=== PATIENT | male | born 1960 | race Caucasian/White ===

== ENCOUNTER 2020-08-27 12:22 | Emergency (ER) | payer MEDICARE ==
[~2020-08-27] VITALS: Ht 180.3 cm; Wt 77.3 kg
[~2020-08-27 12:22] MED LIST: CARV25 PO; DIGO125T84 PO; FURO20 PO; LISI20TA24 PO; POTA-92 PO; WARF2TAB30 PO
[2020-08-27 14:23] LABS: BASOPHILS % (AUTO) 0.7 % (0.0-2.0); EOSINOPHILS % (AUTO) 1.4 % (1.0-6.0); HEMATOCRIT 44.3 % (41-53); HEMOGLOBIN 14.6 g/dL (13.5-17.5); LYMPHOCYTES # (AUTO) 0.9 K/uL (1.0-4.8); LYMPHOCYTES % (AUTO) 10.8 % (22.0-44.0); MEAN CORPUSCULAR HEMOGLOBIN 30.3 pg (26.0-34.0); MEAN CORPUSCULAR HGB CONC 33.1 G/dL (31.0-37.0); MEAN CORPUSCULAR VOLUME 92 fL (80-100); MONOCYTES # (AUTO) 0.6 K/uL (0.1-1.0); MONOCYTES % (AUTO) 6.9 % (2.0-9.0); NEUTROPHILS # (AUTO) 7.1 K/uL (1.8-7.7); NEUTROPHILS % (AUTO) 80.2 % (40.0-70.0); PLATELET COUNT (AUTO) 268 K/uL (150-450); RED BLOOD CELL COUNT(AUTO) 4.84 MIL/uL (4.50-5.90)
[2020-08-27 14:39] LABS: ANION GAP 13 mmol/L (8-16); CALCIUM, TOTAL 8.4 mg/dL (8.8-10.5); CARBON DIOXIDE 20 mmol/L (22-29); CHLORIDE 105 mmol/L (98-107); CREATININE 0.89 mg/dL (0.60-1.30); GLOMERULAR FILTR. RATE CALC > 60 mL/min (>60); GLUCOSE,RANDOM 117 mg/dL (70-110); POTASSIUM 4.1 mmol/L (3.5-5.1); SODIUM SERUM 138 mmol/L (136-145); UREA NITROGEN, BLOOD 12 mg/dL (7-18)
[2020-08-27 14:41] LABS: INR 1.6 (0.9-1.1); PROTHROMBIN TIME 16.7 SEC (9.4-11.6)
[2020-08-27] MEDS ORDERED: OXYMETAZOLINE HCL 0.05% 15 ML NASAL SPRAY NASAL ONE (14:45)
[2020-08-27 14:49] LABS: ALANINE AMINOTRANSFERASE 20 U/L (12-78); ALBUMIN 3.5 g/dL (3.4-5.0); ALKALINE PHOSPHATASE 88 U/L (46-116); ASPARTATE AMINOTRANSFERASE 31 U/L (15-37); BILIRUBIN,TOTAL 0.5 mg/dL (0.1-1.0); TOTAL PROTEIN, SERUM 7.7 g/dL (6.4-8.2)
[2020-08-27 15:20] LABS: DIGOXIN < 0.20 ng/mL (0.90-2.00)
[2020-08-27] MEDS ORDERED: DIGOXIN 125 MCG TABLET PO ONE (15:30)
[2020-08-27] MEDS ORDERED: CARVEDILOL 25 MG TABLET PO ONE (15:30)
[2020-08-27 17:21] VITALS: BP 135/98
== END 2020-08-27 17:25 | disposition left against medical advice (07) ==
LOC: EMS 12:22
DX: R04.0 Epistaxis (principal); D68.9 Coagulation defect, unspecified; I48.91 Unspecified atrial fibrillation; I11.9 Hypertensive heart disease without heart failure; I10 Essential (primary) hypertension; Z95.0 Presence of cardiac pacemaker; Z79.899 Other long term (current) drug therapy; Z79.01 Long term (current) use of anticoagulants
CPT/HCPCS: 30901; 30903; 80053; 80162; 85025; 85610; 85730; 93005; 99283; 99284

== ENCOUNTER 2021-01-12 04:12 | Emergency (ER) | payer MEDICARE ==
[~2021-01-12] VITALS: Ht 180.3 cm; Wt 118.2 kg
[2021-01-12 05:18] LABS: COVID AG,FIA SOURCE NASOPHARYNGEAL
[2021-01-12] MEDS ORDERED: DILTIAZEM HCL 5 MG/ML 5 ML VIAL IVP ONE ×2 (05:30→07:45)
[2021-01-12 05:59] LABS: BASOPHILS % (AUTO) 0.9 % (0.0-2.0); EOSINOPHILS % (AUTO) 0.3 % (1.0-6.0); HEMATOCRIT 46.5 % (41-53); HEMOGLOBIN 15.7 g/dL (13.5-17.5); LYMPHOCYTES # (AUTO) 0.8 K/uL (1.0-4.8); LYMPHOCYTES % (AUTO) 11.4 % (22.0-44.0); MEAN CORPUSCULAR HEMOGLOBIN 30.9 pg (26.0-34.0); MEAN CORPUSCULAR HGB CONC 33.8 G/dL (31.0-37.0); MEAN CORPUSCULAR VOLUME 92 fL (80-100); MONOCYTES # (AUTO) 0.5 K/uL (0.1-1.0); MONOCYTES % (AUTO) 7.6 % (2.0-9.0); NEUTROPHILS # (AUTO) 5.7 K/uL (1.8-7.7); NEUTROPHILS % (AUTO) 79.8 % (40.0-70.0); PLATELET COUNT (AUTO) 206 K/uL (150-450); RED BLOOD CELL COUNT(AUTO) 5.09 MIL/uL (4.50-5.90); RED CELL DISTRIBUTION WIDTH 13.8 % (11.5-14.5)
[2021-01-12 06:26] LABS: D-DIMER 0.42 mg/L FEU (0.00-0.50); PROTHROMBIN TIME 111.4 SEC (9.4-11.6)
[2021-01-12 06:30] LABS: INR 13.2 (0.9-1.1)
[2021-01-12] MEDS ORDERED: ASPIRIN 81 MG CHEWABLE TABLET PO ONE (06:30)
[2021-01-12 06:36] LABS: B-TYPE NATRIURETIC PEPTIDE 188 pg/mL (0-100)
[2021-01-12 06:39] LABS: CARBON DIOXIDE 22 mmol/L (22-29); CREATININE 0.99 mg/dL (0.60-1.30); GLUCOSE,RANDOM 163 mg/dL (70-110); UREA NITROGEN, BLOOD 5 mg/dL (7-18)
[2021-01-12 06:40] LABS: ALANINE AMINOTRANSFERASE 32 U/L (12-78); ALBUMIN 2.7 g/dL (3.4-5.0); ALKALINE PHOSPHATASE 116 U/L (46-116); ASPARTATE AMINOTRANSFERASE 46 U/L (15-37); BILIRUBIN,TOTAL 0.7 mg/dL (0.1-1.0); CALCIUM, TOTAL 7.3 mg/dL (8.8-10.5); CREATINE KINASE, TOTAL ONLY 100 U/L (39-308); GLOMERULAR FILTR. RATE CALC > 60 mL/min (>60); TOTAL PROTEIN, SERUM 7.2 g/dL (6.4-8.2)
[2021-01-12 06:44] LABS: ANION GAP 11 mmol/L (8-16); CHLORIDE 101 mmol/L (98-107); DIGOXIN < 0.20 ng/mL (0.90-2.00); POTASSIUM 3.2 mmol/L (3.5-5.1); SODIUM SERUM 134 mmol/L (136-145)
[2021-01-12] MEDS ORDERED: PHYTONADIONE 10 MG/1 ML AMP PO ONE (06:45)
[2021-01-12] MEDS ORDERED: POTASSIUM CHLORIDE 20 MEQ ER TABLET PO ONE (07:00)
[2021-01-12 07:30] VITALS: BP 132/75
== END 2021-01-12 08:27 | disposition left against medical advice (07) ==
LOC: EMS 04:15
DX: I20.9 Angina pectoris, unspecified (principal); I48.20 Chronic atrial fibrillation, unspecified; I11.9 Hypertensive heart disease without heart failure; E78.00 Pure hypercholesterolemia, unspecified; Z20.822 Contact with and (suspected) exposure to COVID-19; Z95.0 Presence of cardiac pacemaker; Z79.899 Other long term (current) drug therapy; Z79.01 Long term (current) use of anticoagulants
CPT/HCPCS: 36415; 71045; 80053; 80162; 82550; 83880; 84484; 85025; 85379; 85610; 85730; 87040; 87426; 93005; 96374; 99285; J3430; J3490; U0003; 99284

== ENCOUNTER 2022-05-16 17:20 | Inpatient (IN) | payer MEDICARE ==
[~2022-05-16] VITALS: Ht 180.3 cm; Wt 120.4 kg
[2022-05-16] MEDS ORDERED: LISI-893 PO (18:07)
[2022-05-16] MEDS ORDERED: FURO40 PO (18:07)
[2022-05-16] MEDS ORDERED: CARV12 PO (18:07)
[2022-05-16] MEDS ORDERED: WARF5TAB40 PO (18:07)
[2022-05-16 18:27] LABS: BASOPHILS % (AUTO) 0.8 % (0.0-2.0); EOSINOPHILS % (AUTO) 0.5 % (1.0-6.0); HEMATOCRIT 49.7 % (41-53); HEMOGLOBIN 16.7 g/dL (13.5-17.5); LYMPHOCYTES # (AUTO) 0.6 K/uL (1.0-4.8); LYMPHOCYTES % (AUTO) 9.3 % (22.0-44.0); MEAN CORPUSCULAR HEMOGLOBIN 31.9 pg (26.0-34.0); MEAN CORPUSCULAR HGB CONC 33.6 G/dL (31.0-37.0); MEAN CORPUSCULAR VOLUME 95 fL (80-100); MONOCYTES # (AUTO) 0.4 K/uL (0.1-1.0); MONOCYTES % (AUTO) 6.4 % (2.0-9.0); PLATELET COUNT (AUTO) 166 K/uL (150-450); RED BLOOD CELL COUNT(AUTO) 5.23 MIL/uL (4.50-5.90); RED CELL DISTRIBUTION WIDTH 13.6 % (11.5-14.5)
[2022-05-16 18:40] LABS: CALCIUM, TOTAL 8.1 mg/dL (8.8-10.5); CREATININE 1.26 mg/dL (0.60-1.30)
[2022-05-16] MEDS ORDERED: ONDANSETRON HCL 4 MG/2 ML VIAL IVP ONE (18:45)
[2022-05-16] MEDS ORDERED: FAMOTIDINE 10 MG/ML 2 ML VIAL IVP ONE (18:45)
[2022-05-16 18:53] LABS: PROTHROMBIN TIME 98.7 SEC (9.4-11.6)
[2022-05-16 18:55] LABS: COVID AG,FIA SOURCE NASOPHARYNGEAL
[2022-05-16 18:57] LABS: INR 10.3 (0.9-1.1)
[2022-05-16 18:59] LABS: ALBUMIN 2.9 g/dL (3.4-5.0); BILIRUBIN,TOTAL 1.1 mg/dL (0.1-1.0); MAGNESIUM 1.3 mg/dL (1.80-2.40); PHOSPHORUS 3.6 mg/dL (2.5-4.9); TOTAL PROTEIN, SERUM 8.1 g/dL (6.4-8.2)
[2022-05-16 19:16] LABS: INFLUENZA TYPE A NEGATIVE FOR TYPE A (NEGATIVE); INFLUENZA TYPE B NEGATIVE FOR TYPE B (NEGATIVE)
[2022-05-16] MEDS ORDERED: MAGNESIUM SULFATE 2 GM/WATER 50 ML IV ONE (20:00)
[2022-05-16] MEDS ORDERED: PHYTONADIONE 10 MG/1 ML AMP PO ONE (20:45)
[2022-05-16] MEDS ORDERED: BISACODYL 10 MG RECTAL RECTAL SUPPOSITORY PR PRN (21:15)
[2022-05-16] MEDS ORDERED: ACETAMINOPHEN 325 MG TABLET PO PRN (21:15)
[2022-05-16] MEDS ORDERED: HYDROCODONE/ACETAMINOPHEN 5-325 MG TABLET PO PRN (21:15)
[2022-05-16] MEDS ORDERED: MORPHINE SULFATE 2 MG/ML SYRINGE IVP PRN (21:15)
[2022-05-16] MEDS ORDERED: ONDANSETRON HCL 4 MG/2 ML VIAL IVP PRN (21:15)
[2022-05-16] MEDS ORDERED: MAGNESIUM HYDROXIDE SUSPENSION 30 ML UDCUP PO PRN (21:15)
[2022-05-16] MEDS ORDERED: ZOLPIDEM TARTRATE 5 MG TABLET PO PRN (21:15)
[2022-05-16 23:30] VITALS: BP 120/70
[2022-05-16 23:45] VITALS: BP 124/76
[2022-05-17 01:13] VITALS: BP 131/77
[2022-05-17] MEDS ORDERED: SODIUM CHLORIDE 0.9% 500 ML IV ONE (01:46)
[2022-05-17] MEDS ORDERED: AMIODARONE HCL 150 MG in DEXTROSE 5%-WATER 97 ML IV ONE (02:45)
[2022-05-17] MEDS ORDERED: AMIODARONE HCL 360 MG in DEXTROSE 5%-WATER 242.8 ML IV ONE (02:45)
[2022-05-17 05:17] VITALS: BP 131/77
[2022-05-17 07:05] LABS: ANION GAP 8 mmol/L (8-16); CALCIUM, TOTAL 8.3 mg/dL (8.8-10.5); CARBON DIOXIDE 23 mmol/L (22-29); CHLORIDE 99 mmol/L (98-107); CREATININE 1.07 mg/dL (0.60-1.30); GLUCOSE,RANDOM 122 mg/dL (70-110); POTASSIUM 3.7 mmol/L (3.5-5.1); SODIUM SERUM 130 mmol/L (136-145); UREA NITROGEN, BLOOD 8 mg/dL (7-18)
[2022-05-17 07:06] LABS: GLOMERULAR FILTR. RATE CALC > 60 mL/min (>60)
[2022-05-17 07:07] LABS: PROTHROMBIN TIME 48.1 SEC (9.4-11.6)
[2022-05-17 07:10] LABS: ALANINE AMINOTRANSFERASE 38 U/L (12-78); ALBUMIN 2.8 g/dL (3.4-5.0); ALKALINE PHOSPHATASE 152 U/L (46-116); ANION GAP 11 mmol/L (8-16); ASPARTATE AMINOTRANSFERASE 91 U/L (15-37); BILIRUBIN,TOTAL 1.7 mg/dL (0.1-1.0); CALCIUM, TOTAL 8.2 mg/dL (8.8-10.5); CARBON DIOXIDE 23 mmol/L (22-29); CHLORIDE 99 mmol/L (98-107); CREATININE 1.06 mg/dL (0.60-1.30); GLOMERULAR FILTR. RATE CALC > 60 mL/min (>60); GLUCOSE,RANDOM 121 mg/dL (70-110); POTASSIUM 3.8 mmol/L (3.5-5.1); SODIUM SERUM 133 mmol/L (136-145); TOTAL PROTEIN, SERUM 7.6 g/dL (6.4-8.2); UREA NITROGEN, BLOOD 8 mg/dL (7-18)
[2022-05-17 07:14] LABS: INR 4.9 (0.9-1.1)
[2022-05-17 07:45] VITALS: BP 116/76
[2022-05-17] MEDS: PANTOPRAZOLE SODIUM 40 MG DR TABLET PO SCH (08:03)
[2022-05-17] MEDS: DIGOXIN 125 MCG TABLET PO SCH (08:03)
[2022-05-17] MEDS: DOCUSATE SODIUM 100 MG CAPSULE PO SCH ×2 (08:03→21:00)
[2022-05-17] MEDS: PHYTONADIONE 10 MG/1 ML AMP SQ SCH (08:04)
[2022-05-17] MEDS ORDERED: AMIODARONE HCL 540 MG in DEXTROSE 5%-WATER 239.2 ML IV ONE (08:45)
[2022-05-17 11:13] VITALS: BP 144/71
[2022-05-17] MEDS: CARVEDILOL 12.5 MG TABLET PO SCH ×2 (14:20→21:17)
[2022-05-17 15:54] VITALS: BP 109/97
[2022-05-17 20:00] VITALS: BP 114/79
[2022-05-18] VITALS (7 sets, daily range): BP systolic 108–138; BP diastolic 62–95
[2022-05-18] MEDS ORDERED: AMIODARONE HCL 750 MG in DEXTROSE 5%-WATER 485 ML IV SCH (02:45)
[2022-05-18 06:01] LABS: ANION GAP 6 mmol/L (8-16); CALCIUM, TOTAL 8.3 mg/dL (8.8-10.5); CARBON DIOXIDE 24 mmol/L (22-29); CHLORIDE 99 mmol/L (98-107); CREATININE 0.99 mg/dL (0.60-1.30); GLUCOSE,RANDOM 111 mg/dL (70-110); POTASSIUM 3.8 mmol/L (3.5-5.1); SODIUM SERUM 129 mmol/L (136-145); UREA NITROGEN, BLOOD 13 mg/dL (7-18)
[2022-05-18 06:06] LABS: GLOMERULAR FILTR. RATE CALC > 60 mL/min (>60)
[2022-05-18 06:09] LABS: INR 2.1 (0.9-1.1); PROTHROMBIN TIME 21.3 SEC (9.4-11.6)
[2022-05-18] MEDS: CARVEDILOL 12.5 MG TABLET PO SCH ×2 (08:31→20:27)
[2022-05-18] MEDS: DIGOXIN 125 MCG TABLET PO SCH (08:32)
[2022-05-18] MEDS: LISINOPRIL 10 MG TABLET PO SCH (08:32)
[2022-05-18] MEDS: DOCUSATE SODIUM 100 MG CAPSULE PO SCH ×2 (08:32→20:28)
[2022-05-18] MEDS: PANTOPRAZOLE SODIUM 40 MG DR TABLET PO SCH (08:32)
[2022-05-18] MEDS: PHYTONADIONE 10 MG/1 ML AMP SQ SCH (08:35)
[2022-05-19 00:04] VITALS: BP 136/83
[2022-05-19 04:00] VITALS: BP 151/87
[2022-05-19 06:06] LABS: INR 1.4 (0.9-1.1); PROTHROMBIN TIME 15.1 SEC (9.4-11.6)
[2022-05-19 06:11] LABS: ANION GAP 6 mmol/L (8-16); CALCIUM, TOTAL 8.1 mg/dL (8.8-10.5); CARBON DIOXIDE 27 mmol/L (22-29); CHLORIDE 104 mmol/L (98-107); CREATININE 0.98 mg/dL (0.60-1.30); GLUCOSE,RANDOM 107 mg/dL (70-110); POTASSIUM 3.7 mmol/L (3.5-5.1); SODIUM SERUM 137 mmol/L (136-145); UREA NITROGEN, BLOOD 11 mg/dL (7-18)
[2022-05-19 06:24] LABS: GLOMERULAR FILTR. RATE CALC > 60 mL/min (>60)
[2022-05-19 07:14] VITALS: BP 149/88
[2022-05-19] MEDS: PANTOPRAZOLE SODIUM 40 MG DR TABLET PO SCH (08:33)
[2022-05-19] MEDS: LISINOPRIL 10 MG TABLET PO SCH (08:33)
[2022-05-19] MEDS: DOCUSATE SODIUM 100 MG CAPSULE PO SCH (08:33)
[2022-05-19] MEDS: DIGOXIN 125 MCG TABLET PO SCH (08:33)
[2022-05-19] MEDS ORDERED: APIXABAN 5 MG TABLET PO SCH (09:00)
[2022-05-19] MEDS ORDERED: CARVEDILOL 25 MG TABLET PO SCH (09:00)
[2022-05-19] MEDS ORDERED: DIGO125T84 PO (10:39)
[2022-05-19] MEDS ORDERED: APIX5TAB PO (10:39)
[2022-05-19] MEDS ORDERED: LISI-893 PO (10:39)
[2022-05-19] MEDS ORDERED: CARV25 PO (10:39)
[2022-05-19 11:41] VITALS: BP 119/79
== END 2022-05-19 17:00 | disposition home or self-care (01) | DRG 813 ==
LOC: EMS 17:24 → 5S 21:17
PROVIDERS: ADMIT Internal Medicine; ATTEND Internal Medicine
PROC: 30233K1 Transfusion of Nonautologous Frozen Plasma into Peripheral Vein, Percutaneous Approach (ICD-10-PCS; principal; 2022-05-16)
DX: D68.9 Coagulation defect, unspecified (principal); E87.1 Hypo-osmolality and hyponatremia; I48.91 Unspecified atrial fibrillation; E66.01 Morbid (severe) obesity due to excess calories; F10.10 Alcohol abuse, uncomplicated; I11.0 Hypertensive heart disease with heart failure; I25.10 Atherosclerotic heart disease of native coronary artery without angina pectoris; I50.9 Heart failure, unspecified; S00.12XA Contusion of left eyelid and periocular area, initial encounter; E78.5 Hyperlipidemia, unspecified; F15.10 Other stimulant abuse, uncomplicated; Z20.822 Contact with and (suspected) exposure to COVID-19; R73.9 Hyperglycemia, unspecified; X58.XXXA Exposure to other specified factors, initial encounter; Z79.01 Long term (current) use of anticoagulants; Z95.0 Presence of cardiac pacemaker; Z91.199 Patient's noncompliance with other medical treatment and regimen due to unspecified reason; Z79.899 Other long term (current) drug therapy; Z68.37 Body mass index [BMI] 37.0-37.9, adult; Y93.89 Activity, other specified; Y92.89 Other specified places as the place of occurrence of the external cause; Y99.8 Other external cause status
CPT/HCPCS: 36430; 36556; 70450; 70486; 71045; 80048; 80053; 82550; 83690; 83735; 83880; 84100; 84484; 85025; 85610; 85730; 86850; 86900; 86901; 86927; 87804; 93005; 93306; 97162; 99291; G0480; J0282; J2405; J3430; J3475; J3490; J7040; J7060; P9017; 36415-L1; 36415-TC

== ENCOUNTER 2022-12-13 16:39 | Emergency (ER) | payer MEDICARE ==
[~2022-12-13] VITALS: Ht 180.3 cm; Wt 131.4 kg
[~2022-12-13 16:39] MED LIST changes: +APIX5TAB PO; -FURO20 PO; +FURO40 PO; +LISI-893 PO; -LISI20TA24 PO; -POTA-92 PO; -WARF2TAB30 PO
[2022-12-13 16:42] VITALS: TEMP 98.1
[2022-12-13] MEDS ORDERED: LISI10TA24 PO (16:44)
[2022-12-13] MEDS ORDERED: DIGO125T72 PO (16:44)
[2022-12-13] MEDS ORDERED: CARV25TA32 PO (16:44)
[2022-12-13] MEDS ORDERED: OXYMETAZOLINE HCL 0.05% 15 ML NASAL SPRAY NASAL ONE (17:00)
[2022-12-13] MEDS ORDERED: SILVER NITRATE APPLICATOR 1 EA STICK TP ONE (17:15)
[2022-12-13 18:02] VITALS: BP 133/79; PULSE 107; RESP 16
== END 2022-12-13 18:27 | disposition home or self-care (01) ==
LOC: EMS 16:40
DX: R04.0 Epistaxis (principal); I48.20 Chronic atrial fibrillation, unspecified; I11.0 Hypertensive heart disease with heart failure; I50.9 Heart failure, unspecified; E78.00 Pure hypercholesterolemia, unspecified; I25.2 Old myocardial infarction
CPT/HCPCS: 30901; 99283

== ENCOUNTER 2022-12-15 09:14 | Emergency (ER) | payer MEDICARE ==
[~2022-12-15] VITALS: Ht 180.3 cm; Wt 113.6 kg
[~2022-12-15 09:14] MED LIST changes: -CARV25 PO; +CARV25TA32 PO; +DIGO125T72 PO; -DIGO125T84 PO; -LISI-893 PO; +LISI10TA24 PO
[2022-12-15 09:21] VITALS: BP 168/91; PULSE 62; RESP 18; TEMP 98
[2022-12-15] MEDS ORDERED: PHENYLEPHRINE HCL 1% 15 ML NASAL SPRAY NASAL ONE (10:15)
== END 2022-12-15 11:32 | disposition home or self-care (01) ==
LOC: EMS 09:40
DX: R04.0 Epistaxis (principal); I11.0 Hypertensive heart disease with heart failure; I50.9 Heart failure, unspecified; E78.00 Pure hypercholesterolemia, unspecified; Z98.890 Other specified postprocedural states
CPT/HCPCS: 99282; Z7502; Z7610